=== PATIENT | male | born 1985 | race African-American/Black ===

== ENCOUNTER 2023-12-06 20:08 | Emergency (ER) | payer OTHER ==
[~2023-12-06] VITALS: Ht 165.1 cm; Wt 95.1 kg
[2023-12-06] MEDS ORDERED: AMOX875T2 PO (21:35)
[2023-12-06] MEDS ORDERED: FLUTISP (21:35)
[2023-12-06 21:45] VITALS: BP 138/89; TEMP 97.7; O2SAT 100
== END 2023-12-06 21:50 | disposition home or self-care (01) ==
LOC: M ED 20:08
DX: J32.9 Chronic sinusitis, unspecified (principal); Z79.2 Long term (current) use of antibiotics; Z79.899 Other long term (current) drug therapy